=== PATIENT | male | born 1940 | race Caucasian/White ===

== ENCOUNTER 2024-05-21 09:22 | Day surgery (SDC) | payer MEDICARE, SELFPAY ==
[2024-05-21 09:44] VITALS: BP 160/72; PULSE 78; RESP 16; TEMP 36.5; O2SAT 100; BMI 29.9
--- NOTE | 2024-05-21 10:10 | PCM.HP.STD ---
HPI - General General Date of Admission: 05/21/24 Date of Service: 05/21/24 Chief Complaint: Neoplasm left wrist HPI Narrative ARCHIE BUSTOS, is a 84 M who presents with a growing, tender neoplasm of his left wrist. This will be sent for pathologic evaluation. He is aware of the possible need for further surgery depending on the resulting pathology. [facility] Medical History (Updated 04/20/24 @ 16:[address] Raeann Centeno MD) History of skin cancer History of gastroesophageal reflux (GERD) Family history of prostate problems History of kidney stones History of high cholesterol History of hypertension History of cataract History of blood clots History of back problems History of environmental allergies Home Medications ?Medication ?Instructions ?Recorded ?Last Taken ?Type apixaban 5 mg tablet (Eliquis) 5 mg PO BID 04/20/24 Unknown History diltiazem HCl 120 mg 120 mg PO QDAY 04/20/24 Unknown History capsule,extended release 24 hr docusate sodium 100 mg capsule 100 mg PO BID 04/20/24 Unknown History (Dulcolax Stool Softener (docusate)) eplerenone 50 mg tablet 50 mg PO QDAY 04/20/24 Unknown History finasteride 5 mg tablet 5 mg PO QDAY 04/20/24 Unknown History multivitamin (Daily Multi-Vitamin 1 tab PO QAM 04/20/24 Unknown History tablet) omeprazole 20 mg capsule,delayed 20 mg PO QDAY 04/20/24 Unknown History release polydextrose 2.5 gram chewable g PO 04/20/24 Unknown History tablet (FiberWell) potassium chloride 20 mEq 20 meq PO QDAY 04/20/24 Unknown History tablet,extended release(part/cryst) simvastatin 40 mg tablet 40 mg PO QHS 04/20/24 Unknown History terazosin 5 mg capsule 5 mg PO QHS 04/20/24 Unknown History tramadol 50 mg tablet 50 mg PO Q6 PRN 04/20/24 Unknown History Allergy/AdvReac Type Severity Reaction Status Date / Time No Known Allergies Allergy Verified 05/21/24 09:43 Family History (Updated 04/20/24 @ 15:14 by Genny Freedman) Father Arthritis Cancer lung cancer Respiratory disease Mother Arthritis Breast cancer High cholesterol Osteoporosis CVA (cerebral vascular accident) Surgical History (Updated 04/20/24 @ 15:17 by Genny Freedman) History of elbow surgery History of vasectomy History of surgical removal of meniscus of knee Hx of tonsillectomy History of surgical removal of ganglion cyst History of eyelid surgery History of cataract surgery History of hernia surgery Social History (Updated 04/20/24 @ 15:17 by Genny Freedman) Smoking Status: Never smoker alcohol intake: never substance use type: does not use additional social history: pt denies using aspirin and ibuprofen pt denies vaping, denies marijuana use denies gummies Vital Signs Vital Signs Vital Signs: 05/21/24 09:44 05/21/24 09:44 Temperature 97.7 F L Temperature Source Temporal Pulse Rate 78 Respiratory Rate 16 Respiratory Pattern Normal Blood Pressure 160/72 H Blood Pressure Mean 101 Blood Pressure Source Monitor Blood Pressure Position Semi-Fowlers Blood Pressure Location Left Arm Pulse Ox 100 Oxygen Delivery Method Room Air Weight Weight: 197 lb 3.2 oz Body Mass Index (BMI) 29.9 Physical Exam Const alert, oriented x3, no apparent distress, average body habitus and well nourished General Appearance: cooperative and well developed Orientation / Consciousness: oriented to person, oriented to place and oriented to time HEENT head/scalp atraumatic, external ears normal and external nose normal Head and Scalp: normal to inspection, normocephalic, atraumatic and abrasion Face and Sinus: normal facial exam and face symmetric Nose: external nose normal External Ear: external ears normal External Auditory Canal: EAC's normal Mouth: lips normal Eyes PERRL, EOMs intact bilaterally and conjunctivae normal General Eye: normal appearance of both eyes Periorbital: periorbital findings normal Eyelid: eyelids normal Conjunctiva: conjunctiva normal Pupil: PERRL Neck full ROM Lymph Lymphatic: no lymphadenopathy noted Chest inspection of chest normal Breast/Axilla Palpation: no axillary lymphadenopathy Resp normal respiratory effort, normal air movement and clear to auscultation bilaterally Auscultation: clear to auscultation bilaterally Cardio regular rate, regular rhythm, S1 normal heart sound, S2 normal heart sound and no murmurs Rate: regular rate Rhythm: regular rhythm GI soft to palpation and non-tender Extremity normal to inspection and full ROM General Extremity: normal exam except as noted and edema bilateral Skin Skin Narrative: severely solar damaged skin General Skin Exam: turgor normal Neuro oriented x3, CN's II-XII intact bilaterally, moves all extremities, no focal motor deficits and no sensory deficits noted Sensorium / Orientation: awake, alert, oriented to person, oriented to place and oriented to time Speech: speech normal Gait (Neuro): normal gait Psych mental status grossly normal Attention / Concentration: concentration grossly intact Memory / Cognition: memory grossly intact Assessment & Plan Assessment/Plan (1) Neoplasm of uncertain behavior of skin: PLAN: Plan for excisional bx neoplasm left dorsal wrist
[2024-05-21 10:15] VITALS: BP 142/80; BP 146/78; O2SAT 94; O2SAT 95; O2SAT 96
--- NOTE | 2024-05-21 10:40 | LES_PTH ---
PATIENT: ARCHIE BUSTOS LOC: [facility] – [place] U#:[id number] AGE/SX: 84/M ROOM: RE05/21/[address]: Dr. Raeann Centeno MD : 1940 BED: DIS: 05/21/2024 SPEC #: [id number] RECD: 05/21/24 13:54 STATUS: DOTTY REMarely #: [id number] SCOTT: 05/21/24 10:[address]: Raeann Centeno DEPT: SURGICAL PATHOLOGY RECD BY: Hugo Torre ENTERED: 05/21/24 14:28 SP TYPE: Lesion OTHR DR: Dr. 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 ISHMAEL. 05/24/2024 COMMENT The lesion is present approximately 2.0mm. from the inked deep margin focally. Clinical correlation necessary. Case has been reviewed in consultation with Dr. Villatoro who concurs with the above diagnosis. IDC:SJ MICROSCOPIC DESCRIPTION Slides are reviewed. GROSS DESCRIPTION Received in fixative is one container labeled with the patient's name and designated Neoplasm of uncertain behavior of skin right forearm. The specimen consists of a piece of skin measuring 2.2 x 1.2cm and up to 0.5cm in thickness. There is a raised nodular lesion on the surface measuring 1.2 x 1.0cm. The specimen is inked, serially sectioned and submitted entirely in one cassette. 05/21/2024 TC:0 CPT:96793
[2024-05-21] MEDS: Lidocaine 1% /Epi 1:100 9 ML, Sodium Bicarbonate 1 MEQ OPERA.SITE (10:51)
--- NOTE | 2024-05-21 11:10 | DCINST_ITS ---
Discharge Instructions Dressing / Incision Additional Dressing/Incision Instructions:: May leave the dressing in place until seen in the office. If the dressing is left in place, keep it dry when showering. May rewrap the wrap if it feels too tight. If you do remove the dressing, apply antibiotic ointment, gauze, and the wrap to anchor in place. Take the oral antibiotic (Keflex) 2 times a day until finished. Follow Up Care Please Follow Up With: Raeann Centeno MD When: 1 to 2 weeks Test Results: Test results from this visit will be discussed in further detail at your follow- up appointment, if applicable. Discharge Plan Admission Attending Provider: Raeann Centeno Primary Care Provider: Claudio Lees Instructions Print Language: [place] Discharge Orders/Prescriptions Prescriptions: New cephalexin 500 mg capsule 500 mg PO BID 7 Days Qty: 14 0RF No Action simvastatin 40 mg tablet 40 mg PO QHS finasteride 5 mg tablet 5 mg PO QDAY tramadol 50 mg tablet 50 mg PO Q6 PRN terazosin 5 mg capsule 5 mg PO QHS omeprazole 20 mg capsule,delayed release(DR/EC) 20 mg PO QDAY eplerenone 50 mg tablet 50 mg PO QDAY diltiazem HCl 120 mg capsule,extended release 24hr 120 mg PO QDAY potassium chloride 20 mEq tablet,ER particles/crystals 20 meq PO QDAY docusate sodium [Dulcolax Stool Softener (dss)] 100 mg capsule 100 mg PO BID multivitamin [Daily Multi-Vitamin] Tablet 1 tab PO QAM FiberWell 2.5 gram tablet,chewable PO Eliquis 5 mg tablet 5 mg PO BID Referrals / Follow Up: Claudio Lees MD [Primary Care Provider] - Disposition Disposition (needs filled in before D/C Order can be placed): Home, Self Care
[2024-05-21 11:13] VITALS: BP 160/72; BP 162/78; PULSE 69; RESP 16; TEMP 36.4; O2SAT 95
--- NOTE | 2024-05-21 11:13 | PCM.OPRPT ---
Problems Associated Problem List Diagnoses (1) Neoplasm of uncertain behavior of skin: Operative Report (Standard) Operative Information Date of Procedure: 05/21/24 Pre-Operative Diagnosis: Neoplasm of uncertain behavior right forearm Post-Operative Diagnosis: Same Surgery/Procedure Performed: Excision neoplasm right forearm (3.0 cm) with intermediate closure programmer developer: No Type of Anesthesia: Local RN Documented Start/Stop Times: Operation Date: 05/21/24 10:40 Case Time Into Pre-Op 05/21/24 09:36 Out of Pre-Op 05/21/24 10:11 Into Room 05/21/24 10:14 Procedure Start 05/21/24 10:39 Procedure End 05/21/24 11:02 Anesthesia End 05/21/24 11:05 Out of Room 05/21/24 11:05 Procedure Start Time: 10:39 Procedure Stop Time: 11:02 Select all DRAINS/GRAFTS/IMPLANTS that apply: None Estimated Blood Loss: Minimal Specimen collected: Yes Description of specimen(s) removed: Neoplasm right forearm Description of surgery: The patient presents today with a growing or changing lesion of the right forearm. He presents for excision of the neoplasm with submission for pathologic evaluation. He is marked in the preop holding area prior to surgery. Informed consent is obtained. The patient is brought to the operating room and placed on the operating room table in the supine position. The right forearm is prepped and draped in the usual sterile fashion. 1% Xylocaine with epinephrine buffered with sodium bicarb is used for local anesthetic. Following this, the site is elliptically excised and passed off the operative field to be sent to pathology. Hemostasis is controlled with cautery. The incision is then closed in layers using a Vicryl suture in the subcutaneous tissue and dermis with several [id number] sutures. Skin edges are approximated with a running subcuticular Vicryl suture. Xeroform, gauze, and a Coban wrap are used to dress the site. He tolerated the procedure well was taken to the recovery area in an awake and stable condition. Needle and sponge counts are correct. Surgical Findings: As above Complications Complications: No Admit VTE Documentation VTE Present on Admission: No VTE Mechan Device Prophylaxis: None Reason prophylaxis not ordered: Treatment Not Indicated
== END 2024-05-21 11:35 | disposition home or self-care (01) ==
LOC: SDC 09:25 → AC 09:27
PROVIDERS: PCP Family Medicine; Referring Provider Plastic Surgery; Visit Provider Plastic Surgery
PROC: (CPT 11603; principal; 2024-05-21 10:30)
DX: C44.622 Squamous cell carcinoma of skin of right upper limb, including shoulder (principal); K21.9 Gastro-esophageal reflux disease without esophagitis; M25.532 Pain in left wrist; I10 Essential (primary) hypertension; E78.00 Pure hypercholesterolemia, unspecified; Z79.01 Long term (current) use of anticoagulants; Z79.899 Other long term (current) drug therapy
CPT/HCPCS: 11603; 12032; 88305